=== PATIENT | female | born 1935 | race Caucasian/White ===

== ENCOUNTER 2025-05-15 17:17 | Emergency (ER) | payer MEDICARE, OTHER ==
[~2025-05-15] VITALS: Ht 160 cm; Wt 56.7 kg
[2025-05-15] MEDS: IV NS 0.9% 500 ML BAG IV ONE (17:58)
[2025-05-15] MEDS: ONDANSETRON HCL/PF 4 MG/2 ML VIAL IVP ONE (18:15)
[2025-05-15 18:17] LABS: PLATELET COUNT (AUTO) 138 K/uL (150-450); RED BLOOD CELL COUNT(AUTO) 5.75 MIL/uL (4.0-5.2); RED CELL DISTRIBUTION WIDTH 19.1 % (11.5-15.0); WHITE BLOOD COUNT (AUTO) 8.9 K/uL (4.3-11.0)
[2025-05-15] MEDS ORDERED: ONDANSETRON HCL/PF 4 MG/2 ML VIAL ONE (18:20)
[2025-05-15 18:28] LABS: CALCIUM, SERUM 9.5 mg/dL (8.5-10.1); CREATININE 0.7 mg/dL (0.6-1.3); SODIUM SERUM 140 mmol/L (136-145); UREA NITROGEN, BLOOD 25 mg/dL (7-18)
[2025-05-15 18:33] LABS: ASPARTATE AMINOTRANSFERASE 13 U/L (15-37); TOTAL PROTEIN, SERUM 8.0 g/dL (6.4-8.2)
[2025-05-15 19:02] VITALS: BP 161/91; TEMP 98.6; O2SAT 98
[2025-05-15] MEDS ORDERED: MELO-105 PO (20:39)
[2025-05-15 21:31] LABS: APPEARANCE,URINE CLEAR (CLEAR); BLOOD, URINE TRACE-INTA Ery/uL (NEGATIVE); LEUKOCYTE ESTERASE ,URINE TRACE (NEGATIVE); NITRITE, URINE NEGATIVE (NEGATIVE); UGLUCOSE NEGATIVE (NEGATIVE)
[2025-05-15 21:52] LABS: ADD URINE CULTURE YES
[2025-05-15 21:53] LABS: SQUAMOUS EPITHELIAL CELL,UR 0-2 /HPF (None Seen)
[2025-05-16] MEDS ORDERED: ONDA4TAB5 PO (21:25)
== END 2025-05-15 22:02 | disposition home or self-care (01) ==
LOC: ER 17:28
DX: M54.50 Low back pain, unspecified (principal); I11.9 Hypertensive heart disease without heart failure; E10.10 Type 1 diabetes mellitus with ketoacidosis without coma; E86.0 Dehydration
CPT/HCPCS: 99285; 96374; 71045; 93005; 72110; 85025; 80048; 87086; 80076; 81001; 36415; 84484 ×2; J2405; J7040

== ENCOUNTER 2025-05-16 17:50 | Emergency (ER) | payer OTHER ==
[~2025-05-16] VITALS: Ht 152.4 cm; Wt 55.8 kg
[~2025-05-16 17:50] MED LIST: MELO-105 PO
[2025-05-16 18:20] LABS: PLATELET COUNT (AUTO) 136 K/uL (150-450); RED BLOOD CELL COUNT(AUTO) 5.70 MIL/uL (4.0-5.2); RED CELL DISTRIBUTION WIDTH 19.3 % (11.5-15.0); WHITE BLOOD COUNT (AUTO) 8.3 K/uL (4.3-11.0)
[2025-05-16] MEDS ORDERED: ONDANSETRON HCL/PF 4 MG/2 ML VIAL ONE ×2 (18:20→21:31)
[2025-05-16] MEDS ORDERED: FAMOTIDINE/PF INJ 20 MG/2 ML VIAL IV ONE (18:21)
[2025-05-16 18:28] LABS: CALCIUM, SERUM 9.8 mg/dL (8.5-10.1); CREATININE 0.7 mg/dL (0.6-1.3); SODIUM SERUM 138.0 mmol/L (136-145); UREA NITROGEN, BLOOD 33.0 mg/dL (7-18)
[2025-05-16 18:34] LABS: ASPARTATE AMINOTRANSFERASE 16.0 U/L (15-37); TOTAL PROTEIN, SERUM 8.1 g/dL (6.4-8.2)
[2025-05-16] MEDS: FAMOTIDINE/PF INJ 20 MG/2 ML VIAL IV ONE (19:07)
[2025-05-16] MEDS: ONDANSETRON HCL/PF 4 MG/2 ML VIAL IV ONE ×2 (19:08→21:31)
[2025-05-16] MEDS ORDERED: ONDA4TAB5 PO (21:25)
[2025-05-16 23:45] VITALS: BP 132/68; TEMP 98.2; O2SAT 98
== END 2025-05-16 23:53 | disposition home or self-care (01) ==
LOC: ER 17:52
DX: R10.13 Epigastric pain (principal); R11.2 Nausea with vomiting, unspecified; E11.9 Type 2 diabetes mellitus without complications; I11.9 Hypertensive heart disease without heart failure; Z79.84 Long term (current) use of oral hypoglycemic drugs
CPT/HCPCS: 99285; 74176; 96374; 96375; 93005; 96376; 85025; 80048; 83690; 80076; 36415; 84484 ×2; J1308; J2405 ×2